=== PATIENT | female | born 1975 | race Caucasian/White ===

== ENCOUNTER 2018-08-03 11:43 | Outpatient (CLI) | payer BC ==
[~2018-08-03] VITALS: Ht 162.6 cm; Wt 73.9 kg
[2018-08-03 12:04] VITALS: Ht 162.6 cm; Wt 73.9 kg
[2018-08-03 12:05] VITALS: BP 135/82; PULSE 58
[2018-08-03] MEDS ORDERED: INSU100C SQ (12:06)
[2018-08-03] MEDS ORDERED: PNV11TAB PO (12:06)
--- NOTE | 2018-08-03 14:32 | TRIAGE ---
OB Triage Datetime Report Generated by CPN: 08/03/2018 14:32 Datetime: 08/03/2018 13:23 Stage of : OB Triage Datetime: 08/03/2018 12:57 Stage of : OB Triage Datetime: 08/03/2018 12:00 Stage of : OB Triage Assessment Type: Triage EGA: 35.1 Maternal Assessment Level of Consciousness: Fully Conscious DTR's/Clonus: DTRs 2+; No Clonus Headache: Denies Blurred Vision: No Respiratory Effort: Unlabored; Regular Rhythm; Equal Expansion Breath Sounds, Left: Clear and Equal Breath Sounds, Right: Clear and Equal Nausea/Vomiting: Denies RUQ Epigastric Pain: Denies Facial Edema: None Temperature Route: Axillary Fall Risk Assessment History of Falling: (0) No Secondary Diagnosis: (0) No Ambulatory Aid: (0) Bedrest/Nurse Assist IV Therapy: (0) No Gait: (0) Normal/Bedrest/Immobile Mental Status: (0) Oriented to Own Ability Fall Score: 0 Fall Risk Score Definition: No Risk: No action required Labor Evaluation Frequency: 0 Monitor Mode: External Pattern: Normal: <= 5 Contractions in 10 Minutes Resting Tone [place]: Relaxed Heart Rate FHR Baseline Rate: 135 Monitor Mode: External US Variability: Moderate 6-25 bpm Accelerations: 10X10 Decelerations: None Category: Category I Pain Assessment Pain Scale: 10 (Annotations: MIDDLE UPPER BACK PAIN OVER 3 DAYS) Pain Presence: Constant Pain Type: Ache Pain Location: Back Pain Goal: 3 Pain Relief Measures: Comfort Measures Datetime: 08/03/2018 11:59 Time of Arrival: 08/03/2018 11:30 Arrived By: Ambulatory Arrived From: Office Chief Complaint: REFERRED FROM DR CLINIC FOR GDM, BPP, EFW, NST, DENIES LEAKING, BLEEDING, OR UC'S Movement: Present Contractions: Denies/Absent Rupture of Membranes: Denies Vaginal Bleeding: None Vaginal Discharge: Denies Recent Sexual Intercouse: Denies Abdominal Trauma: Not Applicable Patient Complaints: None Time Provider Notified: 08/03/2018 12:57 Provider Notified: ye Initial Plan: MONITOR, U/S
--- NOTE | 2018-08-03 16:36 | PN ---
Triage Information Date/Time 08/03/1806/23/1631 Reason for visit: NST and BPP for GDM Weeks of Gestation 35w /Para A1 Diabetes: gestational Diabetes management: insulin controlled Hypertention: none Objective Vital Signs Date Temp Pulse Resp B/P (MAP) Pulse Ox O2 O2 Flow FiO2 Time Delivery Rate 08/03/18 58 135/82 12:05 (99) Heart Rate: 140's Heart Rate Comments CAT I tracing Results/Medications Imaging Results BPP 01/10 JENI 20.7 EFW 2987gm Disposition: Discharge Assessment/Plan A IUP 35w A2DM P RTH in 3days for antepartum test QUETA TRINIDAD MD Aug 03, 2018 16:36
== END 2018-08-03 13:30 | disposition home or self-care (01) ==
LOC: OBT 11:43 → L-D 11:45 → OBT 13:30
PROVIDERS: ATTEND Obstetrics & Gynecology
DX: O09.523 Supervision of elderly multigravida, third trimester (principal); O24.414 Gestational diabetes mellitus in pregnancy, insulin controlled; Z3A.35 35 weeks gestation of pregnancy
CPT/HCPCS: 76815; 76818; Z7500; G0463

== ENCOUNTER 2018-08-20 09:34 | Outpatient (CLI) | payer BC ==
[~2018-08-20] VITALS: Ht 162.6 cm; Wt 72.0 kg
[~2018-08-20 09:34] MED LIST: INSU100C SQ; PNV11TAB PO
[2018-08-20 09:54] VITALS: BP 139/80; PULSE 68; RESP 19
[2018-08-20 09:55] VITALS: Ht 162.6 cm; Wt 72.0 kg
--- NOTE | 2018-08-20 11:40 | PN ---
Triage Information Date/Time Reason for visit: PIH panel and BPP Weeks of Gestation 37+ /Para 4/2 Diabetes: none Hypertention: none Objective Vital Signs Date Temp Pulse Resp B/P (MAP) Pulse Ox O2 O2 Flow FiO2 Time Delivery Rate 08/20/18 98.4 68 19 139/80 Room Air 09:54 (99) Contractions: None Results/Medications Result Diagram: 08/20/18 1034 08/20/18 1034 Results 24 hrs Laboratory Tests Test 08/20/18 10:18 08/20/18 10:34 Urine Color YELLOW Urine Clarity CLEAR Urine pH 5.0 Urine Specific [place] 1.025 Urine Ketones NEGATIVE Urine Nitrite NEGATIVE Urine Bilirubin NEGATIVE Urine Urobilinogen NEGATIVE Urine Leukocyte Esterase NEGATIVE Urine Hemoglobin NEGATIVE Urine Glucose 3+ H Urine Total Protein NEGATIVE White Blood Count 7.7 Red Blood Count 3.73 L Hemoglobin 11.2 L Hematocrit 32.8 L Mean Corpuscular Volume 87.9 Mean Corpuscular Hemoglobin 30.0 Mean Corpuscular Hemoglobin Concent 34.1 Red Cell Distribution Width 13.2 Platelet Count 144 Mean Platelet Volume 11.8 H Immature Granulocytes % 0.800 H Neutrophils % 74.8 Lymphocytes % 14.1 L Monocytes % 8.2 Eosinophils % 1.7 Basophils % 0.4 Nucleated Red Blood Cells % 0.0 Immature Granulocytes # 0.060 H Neutrophils # 5.7 Lymphocytes # 1.1 Monocytes # 0.6 Eosinophils # 0.1 Basophils # 0.0 Nucleated Red Blood Cells # 0.0 Prothrombin Time 12.2 Prothrombin Time Ratio 1.0 INR International Normalized Ratio 0.89 Activated Partial Thromboplast Time 27.2 Fibrinogen 383.0 Sodium Level 134 L Potassium Level 4.1 Chloride Level 107 Carbon Dioxide Level 21 Anion Gap 6 Blood Urea Nitrogen 12 Creatinine 0.43 L Est Glomerular Filtrat Rate mL/min > 60 Glucose Level 107 Uric Acid 3.6 Calcium Level 8.9 Total Bilirubin 0.2 Direct Bilirubin 0.00 Indirect Bilirubin 0.2 Aspartate Amino Transf (AST/SGOT) 24 Alanine Aminotransferase (ALT/SGPT) 33 Alkaline Phosphatase 140 H Total Protein 6.0 L Albumin 3.0 L Globulin 3.00 Albumin/Globulin Ratio 1.00 Disposition: Discharge Assessment/Plan Labs Reviewed BPs reviewed BPP 03/14 No Headache No blurry vision no epigastric pain --->She will collect 24 hr urine for Protein and will return tomorrow --->Questions answered --->precautions discussed --->Follow up with provider BRYAN MILIAN M.D. Aug 20, 2018 11:39
== END 2018-08-20 11:48 | disposition home or self-care (01) ==
LOC: OBT 09:34 → L-D 09:35 → OBT 11:48
PROVIDERS: ATTEND Obstetrics & Gynecology
DX: O13.3 Gestational [pregnancy-induced] hypertension without significant proteinuria, third trimester (principal); O09.523 Supervision of elderly multigravida, third trimester; Z3A.37 37 weeks gestation of pregnancy
CPT/HCPCS: 76818; 80053; 81003; 84560; 85025; 85384; 85610; 85730; Z7500; G0463

== ENCOUNTER → 2018-08-21 | Outpatient (CLI) | payer BC ==
--- NOTE | 2018-08-23 21:34 | PREOPHP ---
DATE OF ADMISSION: 08/21/2018 HISTORY OF PRESENT ILLNESS: This is a 43-year-old female, 4, para 2, abortions 1 with an EDC of 09/06/2018. The patient was transferred to [place] for high-risk at 37 weeks of her pregnan cy with a history of diabetes on insulin, labetalol for hypertension with a previous history of a rep eat previous section. The patient had records from a different clinic and she had a previou s vaginal delivery and UAC at 28 weeks and she had a section in [place] for a baby in 2011 for a macrosomic child of 8 pound 14 ounces. She is in need for a repeat section in the inic. She was going to refer her to me only at this time. The patient also requesting for a tubal l igation. The first visit with me was 08/16/2018 at which time she was sent in for NST, BPP, PIH labs and 24-hour urine collection for protein, which was elevated to 560, everything else was normal. Th e patient is pass 38 weeks, she is advised for a repeat section to avoid impending PIH. Her legs had been extremely swollen to 4+ up to her knee with reflexes that are 2 to 3+. She is not in labor. Her blood sugars had been partially controlled. Her blood pressure had been in the 140s and 80s, but she states she has been swelling very fast. During this last weeks from last time I saw her , 2 days' time, she had gained 6 pounds only in ____ for hypertension and for impending PIH and diabe jose partially controlled. She is advised for a repeat section and tubal ligation. The britany ent is on labetalol 100 mg b.i.d. She has polyhydramnios and she is diabetic on insulin, not complia nt. PAST MEDICAL HISTORY: section and diabetes. ALLERGIES: SULFA. FAMILY HISTORY: Noncontributory. Her mother had PIH and section. PHYSICAL EXAMINATION: VITAL SIGNS: She is at this time, 171 pounds. She is 5 feet 4 inches. Her normal weight she states before was 130 and her blood pressure is 140/80 today. HEAD AND NECK: Normal. CHEST: Clear. HEART: Normal sinus rhythm. LUNGS: Clear. ABDOMEN: Soft, nontender, no masses. heart tones are present. EXTREMITIES: Normal. Her hands are swelling and she has been with immobilization due to carpal tunn el on both of her hands. Her legs are very swelling up to her knee with reflexes that are 2 to 3+. She denies any headaches, dizziness, double vision, epigastric pain; and she is undergoing a repeat c esarean section and tubal ligation for multiparity. FINAL DIAGNOSES: A 38-1/2-week ; chronic hypertension with superimposed preeclampsia; diabe jose, partially controlled; worsening hypertension; and previous section. PLAN: She is undergoing a repeat section and tubal ligation for multiparity, as she has bee n advised of the possible risks and possible complication of the procedure with her alternatives and options. Written information was provided. She had no more questions and agreed to go ahead with th e procedure with full understanding and no more questions. Dictated By: ARMIDA SANCHEZ/BENEDICT Conf#: [id number] DID#: [id number]
== END | disposition home or self-care (01) ==
LOC: OBT 13:56
PROVIDERS: ATTEND Obstetrics & Gynecology
DX: O13.3 Gestational [pregnancy-induced] hypertension without significant proteinuria, third trimester (principal); O24.419 Gestational diabetes mellitus in pregnancy, unspecified control; O34.219 Maternal care for unspecified type scar from previous cesarean delivery; O09.523 Supervision of elderly multigravida, third trimester; Z3A.37 37 weeks gestation of pregnancy; Z3A.01 Less than 8 weeks gestation of pregnancy; Z88.2 Allergy status to sulfonamides
CPT/HCPCS: 82565; 82575; 84156

== ENCOUNTER 2018-08-27 07:07 | Inpatient (IN) | payer BC ==
--- NOTE | 2018-08-23 21:34 | PREOPHP ---
DATE OF ADMISSION: 08/21/2018 HISTORY OF PRESENT ILLNESS: This is a 43-year-old female, 4, para 2, abortions 1 with an EDC of 09/06/2018. The [place] was [place] high-[place] at 37 weeks of her pregnan cy with a history of diabetes on insulin, labetalol for hypertension with a previous history of a rep eat previous section. The patient had records from a different clinic and she had a previou s vaginal delivery and UAC at 28 weeks and she had a section in [place] for a baby in 2011 for a macrosomic child of 8 pound 14 ounces. She is in need for a repeat section in the inic. She was going to refer her to me only at this time. The patient also requesting for a tubal l igation. The first visit with me was 08/16/2018 at which time she was sent in for NST, BPP, PIH labs and 24-hour urine collection for protein, which was elevated to 560, everything else was normal. Th e patient is pass 38 weeks, she is advised for a repeat section to avoid impending PIH. Her legs had been extremely swollen to 4+ up to her knee with reflexes that are 2 to 3+. She is not in labor. Her blood sugars had been partially controlled. Her blood pressure had been in the 140s and 80s, but she states she has been swelling very fast. During this last weeks from last time I saw her , 2 days' time, she had gained 6 pounds only in ____ for hypertension and for impending PIH and diabe jose partially controlled. She is advised for a repeat section and tubal ligation. The britany ent is on labetalol 100 mg b.i.d. She has polyhydramnios and she is diabetic on insulin, not complia nt. PAST MEDICAL HISTORY: section and diabetes. ALLERGIES: SULFA. FAMILY HISTORY: Noncontributory. Her mother had PIH and section. PHYSICAL EXAMINATION: VITAL SIGNS: She is at this time, 171 pounds. She is 5 feet 4 inches. Her normal weight she states before was 130 and her blood pressure is 140/80 today. HEAD AND NECK: Normal. CHEST: Clear. HEART: Normal sinus rhythm. LUNGS: Clear. ABDOMEN: Soft, nontender, no masses. heart tones are present. EXTREMITIES: Normal. Her hands are swelling and she has been with immobilization due to carpal tunn el on both of her hands. Her legs are very swelling up to her knee with reflexes that are 2 to 3+. She denies any headaches, dizziness, double vision, epigastric pain; and she is undergoing a repeat c esarean section and tubal ligation for multiparity. FINAL DIAGNOSES: A 38-1/2-week ; chronic hypertension with superimposed preeclampsia; diabe jose, partially controlled; worsening hypertension; and previous section. PLAN: She is undergoing a repeat section and tubal ligation for multiparity, as she has bee n advised of the possible risks and possible complication of the procedure with her alternatives and options. Written information was provided. She had no more questions and agreed to go ahead with th e procedure with full understanding and no more questions. Dictated By: ARMIDA SANCHEZ/BENEDICT Conf#: [id number] DID#: [id number]
[~2018-08-27] VITALS: Ht 162.6 cm; Wt 76.3 kg
[2018-08-27 07:31] VITALS: Ht 162.6 cm; Wt 76.3 kg
[2018-08-27] MEDS ORDERED: LACTATED RINGER'S 1,000 ML IV SCH ×2 (07:34→09:49)
[2018-08-27 07:59] VITALS: BP 114/76; PULSE 99; RESP 20
[2018-08-27] MEDS ORDERED: CEFAZOLIN 2 GM/50 ML (PMX) 50 ML IVPB SCH (08:00)
[2018-08-27] MEDS ORDERED: CARBOPROST 250 MCG INJ IM PRN ×2 (08:00→10:00)
[2018-08-27] MEDS ORDERED: MISOPROSTOL 200 MCG TAB PR PRN ×2 (08:00→10:00)
[2018-08-27] MEDS ORDERED: METHYLERGONOVINE 0.2 MG INJ IM PRN ×2 (08:00→10:00)
[2018-08-27] MEDS ORDERED: OXYTOCIN 30 UNITS/LR 500 ML IV SCH ×2 (08:00→09:49)
[2018-08-27] MEDS ORDERED: OXYTOCIN 30 UNITS/LR 500 ML IV PRN ×2 (08:00→10:00)
[2018-08-27] MEDS ORDERED: LABE100T7 PO (08:05)
[2018-08-27] MEDS ORDERED: NOVO7030 SC (08:06)
[2018-08-27] MEDS ORDERED: ONDANSETRON 4 MG INJ IV STA (08:39)
--- NOTE | 2018-08-27 08:46 | PREAC ---
Date/Time of Note Date/Time of Note DATE: 08/27/18 TIME: 08:45 Anesthesia Eval and Record Evaluation Time Pre-Procedure Interview DATE: 08/27/18 TIME: 08:45 Age 43 Sex female NPO: 8 hrs Preoperative diagnosis term , prev Csection Planned procedure repeat Csection Past Medical History Past Medical History: Includes Cardio: HTN Endo: Diabetes Surgery & Anesthesia Issues No known issue Meds Anticoagulation: No Beta Mercy within 24 hr: No Reason Beta Mercy not given: Pt. not on B-Mercy Reported Medications Insulin Isophan/Regular (Humulin 70/30) 100 Units/Ml Susp, 12 UNITS SC HS, EA 08/27/18 Labetalol Hcl* (Labetalol Hcl*) 100 Mg Tablet, 100 MG PO BID, TAB 08/27/18 [id number] ( ) 1 Each Tablet, 1 TAB PO DAILY, TAB 08/03/18 Current Medications Lactated Ringer's 1,000 ml @ 125 mls/hr Q8H IV Last administered on 08/27/18at 08:02; Admin Dose 125 MLS/HR; Start 08/27/18 at 07:34 Cefazolin Sodium/ Dextrose 50 ml @ 100 mls/hr ONCE IVPB ; Start 08/27/18 at 08:00 Oxytocin/Lactated Ringer's 500 ml @ 125 mls/hr POST IV ; Start 08/27/18 at 08:00 Oxytocin/Lactated Ringer's 500 ml @ 0 mls/hr ONCE PRN IV .VAGINAL BLEEDING; Start 08/27/18 at 08:00 Methylergonovine Maleate (Methergine) 0.2 mg ONCE PRN IM .VAGINAL BLEEDING; Start 08/27/18 at 08:00 Carboprost Tromethamine (Hemabate) 250 mcg ONCE PRN IM .VAGINAL BLEEDING; Start 08/27/18 at 08:00 Misoprostol (Cytotec) 1,000 mcg ONCE PRN MT .VAGINAL BLEEDING; Start 08/27/18 at 08:00 Famotidine (Pepcid Iv) 20 mg ONCE ONCE IV ; Start 08/27/18 at 09:00; Stop 08/27/18 at 09:01 Metoclopramide HCl (Reglan) 10 mg ONCE ONCE IV ; Start 08/27/18 at 09:00; Stop 08/27/18 at 09:01 Meds reviewed: Yes Allergies Coded Allergies: Sulfa (Sulfonamide Antibiotics) (Verified Allergy, Unknown, 08/03/18) Allergies Reviewed: Yes Labs/Studies Labs Reviewed: Reviewed by anesthesiologist Result Diagram: 08/27/18 0740 08/27/18 0740 Laboratory Tests 08/27/18 07:40 test: Positive Pre-procedure Exam Last vitals Vital Signs Date Temp Pulse Resp B/P (MAP) Pulse Ox O2 O2 Flow FiO2 Time Delivery Rate 08/27/18 97.5 99 20 114/76 Room Air 07:59 (89) Airway: Adequate mouth opening, Adequate thyromental dist Mallampati: Mallampati III Teeth: Normal Lung: Normal Heart: Normal ASA Physical Status ASA physical status: 3 Emergency: None Planned Anesthetic Neuraxial: Spinal Planned Pain Management Sub-arachniod narcotics, Parenteral pain med, Other neuraxial med Pre-operative Attestations Prior to commencing anesthesia and surgery, the patient was re-evaluated, there was verification of: *The patient's identity *The results of appropriate recent lab work and preoperative vital signs *The above evaluation not changing prior to induction *Anesthetic plan, risk benefits, alternative and complications discussed with patient/family; questions answered; patient/family understands, accepts and wishes to proceed. PALLVAI CARDENAS MD Aug 27, 2018 08:46
[2018-08-27] MEDS ORDERED: hydrALAzine 20 MG INJ IV PRN (09:00)
[2018-08-27] MEDS ORDERED: FENTAnyl 50 MCG/ML VIAL IV PRN ×2 (09:00)
[2018-08-27] MEDS ORDERED: ONDANSETRON 4 MG INJ IV PRN ×2 (09:00)
[2018-08-27] MEDS ORDERED: NALOXONE (0.4 MG/ML) INJ IV PRN (09:00)
[2018-08-27] MEDS ORDERED: KETOROLAC 30 MG INJ IV PRN ×2 (09:00)
[2018-08-27] MEDS ORDERED: LEVALBUTEROL (NEB) 1.25 MG/0.5 ML AMP HHN PRN (09:00)
[2018-08-27] MEDS ORDERED: LABETALOL HCL 20MG INJ IV PRN (09:00)
[2018-08-27] MEDS ORDERED: METOCLOPRAMIDE 10 MG INJ IV ONE (09:00)
[2018-08-27] MEDS ORDERED: FAMOTIDINE 20 MG INJ IV ONE (09:00)
[2018-08-27] MEDS ORDERED: ZOLPIDEM 5 MG TAB PO PRN (09:00)
[2018-08-27] MEDS ORDERED: HYDROmorphONE 0.5 MG/0.5 ML SYG IV PRN ×2 (09:00)
[2018-08-27] MEDS ORDERED: HYDROmorphONE 1 MG/5 ML IV SYRINGE IV PRN ×3 (09:00)
[2018-08-27] MEDS ORDERED: DIPHENHYDRAMINE 50 MG INJ IV PRN (09:00)
[2018-08-27] MEDS ORDERED: OXYTOCIN 10 UNIT INJ ONE (09:22)
[2018-08-27] MEDS ORDERED: EPINEPHrine 1 MG INJ ONE (09:22)
[2018-08-27] MEDS ORDERED: morphine SULFATE/PF (10 MG/10 ML) INJ ONE (09:22)
[2018-08-27] MEDS ORDERED: OXYTOCIN 30 UNITS/LR 500 ML IV ONE (09:22)
[2018-08-27] MEDS ORDERED: NA PHOSPHATE/BIPHOS 133 ML ENEMA PR PRN (10:00)
[2018-08-27] MEDS ORDERED: METHYLERGONOVINE 0.2 MG TAB PO PRN (10:00)
[2018-08-27] MEDS ORDERED: HYDROCODONE/APAP (5/325) TAB PO PRN (10:00)
[2018-08-27] MEDS ORDERED: LANOLIN HPA 1 PKT TOP PRN (10:00)
--- NOTE | 2018-08-27 10:05 | SIPON ---
Date/Time of Note Date/Time of Note DATE: 08/27/18 TIME: 10:02 Operative Report Preoperative Diagnosis 38.4 weeks Diabetes uncontrolled Hypertension Impending preeclampsia Previous Multiparity Postoperative Diagnosis Same Operation/Procedure Performed Repeat low segment transverse section Bilateral salpingectomy Surgeon see signature line plumber assistant JUSTO TRINIDAD Anesthesia: spinal Estimated blood loss: other Transfusion Required none Specimen Placenta Grafts/Implants none Complications none ARMIDA VIVEROS MD Aug 27, 2018 10:05
[2018-08-27] MEDS ORDERED: GLUCOSE GEL 15 GRAM TUBE PO PRN ×2 (12:00)
[2018-08-27] MEDS ORDERED: DEXTROSE 50% 50 ML SYRINGE IV PRN ×2 (12:00)
[2018-08-27] MEDS ORDERED: GLUCOSE GEL 15 GRAM TUBE BUCCAL PRN (12:00)
[2018-08-27] MEDS ORDERED: GLUCAGON 1 MG INJ IM PRN (12:00)
--- NOTE | 2018-08-27 12:54 | PAC ---
Date/Time of Note Date/Time of Note DATE: 08/27/18 TIME: 12:54 Post-Anesthesia Notes Post-Anesthesia Note Last documented vital signs Vital Signs Date Temp Pulse Resp B/P (MAP) Pulse Ox O2 O2 Flow FiO2 Time Delivery Rate 08/27/18 97.5 99 20 114/76 Room Air 07:59 (89) Activity: WNL Respiratory function: WNL Cardiovascular function: WNL Mental status: Baseline Pain reasonably controlled: Yes Hydration appropriate: Yes Nausea/Vomiting absent: Yes PALLAVI CARDENAS MD Aug 27, 2018 12:54
[2018-08-27] MEDS: ACCU-CHEK XX SCH ×2 (13:30→20:05)
[2018-08-27] MEDS: INSULIN ASPART [NOVOLOG] 3 ML PEN SC SCH ×3 (13:30→21:00)
--- NOTE | 2018-08-27 13:39 | OPR ---
DATE OF OPERATION: PREOPERATIVE DIAGNOSES: 1. A 38 and 4/7 weeks' with chronic hypertension with superimposed preeclampsia. 2. Uncontrolled diabetes. 3. Chronic hypertension, worsening. 4. Previous section. 5. The patient is unreliable. POSTOPERATIVE DIAGNOSES: 1. Macrosomic child baby boy, Apgars 9, 9 pounds and 7 ounces. 2. Uncontrolled diabetes. 3. Chronic hypertension with superimposed preeclampsia. 4. Previous section. PROCEDURES: Repeat low segment transverse section and bilateral fimbriectomy. SURGEON: Armida Lane MD AML ANALYST: Bethany Flor MD ANESTHESIOLOGIST: Dr. Carrillo. ANESTHESIA: Spinal. PROCEDURE IN DETAILS: The patient was given a spinal anesthesia, placed in the supine position. The abdomen was prepped and draped and a Whitt catheter was placed in the bladder. An elliptical incisi on was made along the previous old scar and the abdomen was opened without difficulties. The abdomin al cavity was reached. The lower uterine segment was identified. The bladder flap was made. The ut erus was opened in the midline with a scalpel. The incision was increased laterally on either side f or about 3 inches. The baby's head was delivered and the body was removed. The cord was clamped and cut. The baby's nostril and mouth had been suctioned. The cord was clamped and cut. The baby was handed over to the dispatcher motor vehicle team. The cord blood was obtained. The placenta was removed. The uterus was cleaned out. The cervix was opened with my finger and I changed gloves and I continued wi th the surgery by cleaning up the uterus. The uterus was bulky, hypertrophic, no filling of fibroid, but very hypertrophic. Both tubes and ovaries were normal. The uterus was closed in 2 layers using 0 PDS looped suture, inverting the first line of suture and hemostasis was good. Interceed was plac ed on the area of the incision. The right and left fimbria was removed after clamp was passed throug h and hemostasis was done with 2-0 Vicryl suture and hemostasis was perfectly fine. The sponge count s, instrument counts were correct. Abdominal cavity was cleaned out and the peritoneum was closed wi th a 2-0 Vicryl suture. The fascia was closed with 0 PDS looped suture, 2-0 Vicryl for the subcutane ous tissue, 3-0 Monocryl subcuticular to the skin. The patient tolerated the procedure well and left the OR awake and stable. Sponge counts and instruments counts were correct. Intravenous antibiotic s were given for prophylaxis. Blood loss was about 600 mL. The urine was clear at the end of the pr ocedure. Dictated By: ARMIDA SANCHEZ/BENEDICT Conf#: [id number] DID#: [id number]
[2018-08-27] MEDS: IBUPROFEN 800 MG TAB PO SCH ×2 (14:00→22:00)
[2018-08-27 14:50] VITALS: BP 144/90; PULSE 87; RESP 17
[2018-08-27 15:15] VITALS: BP 141/81; PULSE 71; RESP 17
[2018-08-27 16:00] VITALS: BP 135/84; PULSE 73; RESP 16
[2018-08-27] MEDS: DIPHENHYDRAMINE 50 MG INJ IV PRN ×2 (16:30→23:11)
[2018-08-27] MEDS: CEFAZOLIN 2 GM/50 ML (PMX) 50 ML IVPB SCH (17:28)
[2018-08-27 19:30] VITALS: BP 122/79; PULSE 76; RESP 19
[2018-08-27] MEDS: LABETALOL 100 MG TAB PO SCH (21:00)
[2018-08-27] MEDS: SENNA/DOCUSATE NA (8.6MG/50MG) TAB PO SCH (21:00)
[2018-08-27 23:30] VITALS: BP 121/71; PULSE 88; RESP 18
[2018-08-28] MEDS: INSULIN ASPART [NOVOLOG] 3 ML PEN SC SCH ×6 (01:00→21:00)
[2018-08-28] MEDS: CEFAZOLIN 2 GM/50 ML (PMX) 50 ML IVPB SCH ×2 (02:37→10:29)
[2018-08-28 03:30] VITALS: BP 122/69; PULSE 79; RESP 19
[2018-08-28] MEDS: IBUPROFEN 800 MG TAB PO SCH ×3 (06:00→21:48)
[2018-08-28] MEDS: DIPHENHYDRAMINE 50 MG INJ IV PRN (06:13)
[2018-08-28] MEDS: LABETALOL 100 MG TAB PO SCH ×2 (08:29→21:00)
[2018-08-28 08:30] VITALS: BP 120/68; PULSE 67; RESP 18
[2018-08-28] MEDS: SENNA/DOCUSATE NA (8.6MG/50MG) TAB PO SCH ×2 (08:30→20:56)
[2018-08-28] MEDS: HYDROCODONE/APAP (5/325) TAB PO PRN ×3 (08:30→20:57)
[2018-08-28] MEDS ORDERED: INFLUENZA VIRUS VACCINE 0.5 ML (DISPENSING) IM* ONE (09:00)
--- NOTE | 2018-08-28 11:18 | HPN ---
Date/Time of Note Date/Time of Note DATE: 08/28/18 TIME: 11:18 Interval H&P Admission Note Pt. seen H&P reviewed: No system changes ARMIDA VIVEROS MD Aug 28, 2018 11:18
--- NOTE | 2018-08-28 11:20 | PN ---
Date/Time of Note Date/Time of Note DATE: 08/28/18 TIME: 11:19 Assessment/Plan Lines/Catheters IV Catheter Type (from Nrsg): Peripheral IV Subjective 24 Hr Interval Summary Day 1 post Afebrile Feels good Vitals are stable Blood sugar blood pressures are stable, encouraged ambulation. Swelling still present but no headaches dizziness epigastric pain Leg edema still 2-3+ normal reflexes Constitutional: no complaints Feeding: advancing diet Pain Control: mild Detailed Summary Eyes: no complaints ENT: no complaints Respiratory: no complaints Cardiovascular: no complaints Gastrointestinal: no complaints Genitourinary: no complaints Musculoskeletal: no complaints Skin: no complaints Neurologic: no complaints Endocrine: no complaints Lymphatic: no complaints Psychological: no complaints, nl mood/affect Immunologic: no complaints Exam/Review of Systems Vital Signs Vitals Vital Signs Date Temp Pulse Resp B/P (MAP) Pulse Ox O2 O2 Flow FiO2 Time Delivery Rate 08/28/18 97.7 67 18 120/68 98 Room Air 08:30 (85) Intake and Output 08/27/18 08/27/18 08/28/18 1515:00 23:00 07:00 IntakeIntake Total 1000 ml 600 ml 500 ml OutputOutput Total 25 ml 400 ml 800 ml BalanceBalance 975 ml 200 ml -300 ml Exam Constitutional: alert, oriented, well developed Psych: no complaints, nl mood/affect Head: normocephalic, atraumatic Eyes: nl conjunctiva, EOMI, nl lids, nl sclera ENMT: nl external ears & nose, nl lips & teeth, nl nasal mucosa & septum, mucosa pink and moist Neck: supple, non-tender Respiratory: clear to auscultation, normal air movement Cardiovascular: regular rate and rhythm, nl pulses Gastrointestinal: soft, nl liver, spleen, non-tender Musculoskeletal: nl extremities to inspection, nl gait and stance Extremities: normal pulses Neurological: HYDROGRAPHY TEACHER II-XII intact, nl mental status, nl speech, nl strength Skin: nl turgor, rash or lesions Lymph: nl lymph nodes Results Result Diagram: 08/28/1813 08/28/1813 ARMIDA VIVEROS MD Aug 28, 2018 11:20
[2018-08-28] MEDS ORDERED: BISACODYL (EC) 5 MG TAB PO ONE (12:00)
[2018-08-28 12:15] VITALS: BP 133/56; PULSE 66; RESP 18
[2018-08-28 19:40] VITALS: BP 116/70; PULSE 69; RESP 19
[2018-08-29] MEDS: INSULIN ASPART [NOVOLOG] 3 ML PEN SC SCH ×6 (01:00→21:00)
[2018-08-29] MEDS: OXYCODONE/ACETAMINOPHEN (5/325) TAB PO PRN ×3 (01:50→20:38)
[2018-08-29 03:45] VITALS: BP 127/69; PULSE 77
[2018-08-29] MEDS: IBUPROFEN 800 MG TAB PO SCH ×3 (05:34→21:35)
[2018-08-29 08:18] VITALS: BP 143/79; PULSE 78; RESP 18
[2018-08-29] MEDS: SENNA/DOCUSATE NA (8.6MG/50MG) TAB PO SCH ×2 (08:38→20:38)
[2018-08-29] MEDS: LABETALOL 100 MG TAB PO SCH ×2 (08:43→20:38)
--- NOTE | 2018-08-29 10:45 | PN ---
Date/Time of Note Date/Time of Note DATE: 08/29/18 TIME: 10:42 Assessment/Plan Lines/Catheters IV Catheter Type (from Nrsg): Peripheral IV Subjective 24 Hr Interval Summary Day 2 post Afebrile Passing gases Incision healing good Uterus contracted Lochia normal Ambulating Still in severe pain We will advance diet Constitutional: improved Feeding: advancing diet Pain Control: moderate Detailed Summary Eyes: no complaints ENT: no complaints Respiratory: no complaints Cardiovascular: no complaints Gastrointestinal: no complaints Genitourinary: no complaints Musculoskeletal: no complaints Skin: no complaints Neurologic: no complaints Endocrine: no complaints Lymphatic: no complaints Psychological: no complaints, nl mood/affect Immunologic: no complaints Exam/Review of Systems Vital Signs Vitals Vital Signs Date Temp Pulse Resp B/P (MAP) Pulse Ox O2 O2 Flow FiO2 Time Delivery Rate 08/29/18 98.4 78 18 143/79 Room Air 08:18 (100) 08/28/18 98 12:15 Intake and Output 08/28/18 08/28/18 08/29/18 1515:00 23:00 07:00 IntakeIntake Total 425 ml OutputOutput Total 950 ml BalanceBalance 425 ml -950 ml Exam Constitutional: alert, oriented, well developed Psych: no complaints, nl mood/affect Head: normocephalic, atraumatic Eyes: nl conjunctiva, EOMI, nl lids, nl sclera ENMT: nl external ears & nose, nl lips & teeth, nl nasal mucosa & septum, mucosa pink and moist Neck: supple, non-tender Respiratory: clear to auscultation, normal air movement Cardiovascular: regular rate and rhythm, nl pulses Gastrointestinal: soft, nl liver, spleen, non-tender Musculoskeletal: nl extremities to inspection, nl gait and stance Extremities: normal pulses Neurological: TRAFFIC RATE ANALYST II-XII intact, nl mental status, nl speech, nl strength Skin: nl turgor, rash or lesions Lymph: nl lymph nodes Results Result Diagram: 08/28/1861208/28/18612 ARMIDA VIVEROS MD Aug 29, 2018 10:45
[2018-08-29] MEDS ORDERED: BISACODYL (EC) 5 MG TAB PO ONE (11:00)
[2018-08-29 12:00] VITALS: BP 142/82; PULSE 82; RESP 18
[2018-08-29 16:00] VITALS: BP 131/77; PULSE 72; RESP 16
[2018-08-29 19:50] VITALS: BP 134/89; PULSE 72; RESP 19
[2018-08-30] MEDS: INSULIN ASPART [NOVOLOG] 3 ML PEN SC SCH ×3 (01:00→09:00)
[2018-08-30 03:55] VITALS: BP 121/65; PULSE 75; RESP 19
[2018-08-30] MEDS: OXYCODONE/ACETAMINOPHEN (5/325) TAB PO PRN ×2 (03:55→08:54)
[2018-08-30] MEDS: IBUPROFEN 800 MG TAB PO SCH (05:47)
[2018-08-30 08:00] VITALS: BP 119/71; PULSE 68; RESP 18
[2018-08-30] MEDS: SENNA/DOCUSATE NA (8.6MG/50MG) TAB PO SCH (08:47)
[2018-08-30] MEDS ORDERED: MEASLES,MUMPS,RUBELLA VACCINE INJ SC* ONE (09:00)
[2018-08-30] MEDS: LABETALOL 100 MG TAB PO SCH (09:00)
[2018-08-30] MEDS ORDERED: DIPHTH/TET/ACEL PERTUSS (ADULT) 0.5 ML VIAL IM* ONE (09:00)
--- NOTE | 2018-08-30 11:51 | PD.PPDC ---
DEHYDRATOR Discharge Instruction Condition Kxdib2Rh Patient Condition: Tnmck2w Good Diet [id number] Diet: Wqlhl8k Resume Regular Diet Activity/Restrictions [id number] Activity: [id number] Normal Activity May Shower Zirxi6Pc Restrictions: Drooo0p No Exercising No Lifting No Driving No Sexual Activity Nothing in the Vagina No [place] No Tampons, douche Wound/Drain Care Instructions [id number] Wound/Drain Care Instructions: Puydb3y Wash with soap and water Keep clean and dry Follow-up Follow-up with Physician: 1, Week/Weeks Return to clinic for Hhgwf2Nd SPEED BELT SANDER Instructions: Smrxt2a Fever greater than 101 Chills Worsening abdominal pain Excessive Vaginal Bleeding More than 2 pads per hour Unable to tolerate diet [id number] OB Instructions: Bhrvi4m Breast Tenderness Depression Blurried Vision Headache Hgnll7Cj Surgical Instructions: Onxkg3e Incisional Drainage Incisional Redness ARMIDA VIVEROS MD Aug 30, 2018 11:51
--- NOTE | 2018-08-30 11:56 | DS ---
Date/Time of Note Date/Time of Note DATE: 08/30/18 TIME: 11:53 Discharge Summary Admission/Discharge Info Admit Date/Time Aug 27, 2018 at 07:07 Discharge Date/Time 08/30/2018 Discharge Diagnosis Term Previous section Hypertension with impending preeclampsia Diabetes Patient Condition: Good Procedures Repeat low segment transverse section Hx of Present Illness 43 years old female with previous section referred to me a week prior to admission in the hospital for a repeat section with term diabetes and hypertension with superimposed preeclampsia. The patient had a proteinuria that was over 580 and she had no headaches dizziness but her legs were swelling to 3+ and reflexes were 3+. A repeat section was scheduled Hospital Course Patient did very well after surgery She was up and about Her blood sugar were controlled with diet Her blood pressure was controlled with labetalol Her incision was healing good She had bowel movement and she is tolerating diet and voiding well She is sent home with instructions of what to do and not to do and to see me in the office in 1 week Home Meds Reported Medications Insulin Isophan/Regular (Humulin 70/30) 100 Units/Ml Susp, 12 UNITS SC HS, EA 08/27/18 Labetalol Hcl* (Labetalol Hcl*) 100 Mg Tablet, 100 MG PO BID, TAB 08/27/18 [id number] ( 19) 1 Each Tablet, 1 TAB PO DAILY, TAB 08/03/18 Primary Care Provider Care Physician No Primary Pending Labs Laboratory Tests Test 08/29/18 12:42 08/29/18 17:46 08/29/18 22:32 08/30/18 07:29 Bedside 102 131 127 Glucose mg/dL (70-220) mg/dL (70-220) mg/dL (70-220) White Blood 10.5 Count 10^3/ul (4.8-1 0.8) Red Blood 3.49 Count 10^6/ul (4.20- 5.40) Hemoglobin 10.4 g/dl (12.0-16. 0) Hematocrit 31.2 % (37.0-47.0) Mean 89.4 Corpuscular fl (82.0-101.0 Volume ) Mean 29.8 Corpuscular pg (29.0-33.0) Hemoglobin Mean 33.3 Corpuscular g/dl (32.0-37. Hemoglobin Conc 0) ent Red Cell 13.9 Distribution % (11.5-14.5) Width Platelet Count 254 10^3/UL (140-4 15) Mean Platelet 10.8 Volume fl (7.4-10.4) Immature 0.400 Granulocytes % % (0.001-0.429 ) Neutrophils % 82.8 % (39.0-77.0) Lymphocytes % 9.0 % (15.0-51.0) Monocytes % 6.4 % (0.0-11.0) Eosinophils % 1.2 % (0.0-7.0) Basophils % 0.2 % (0.0-2.0) Nucleated Red 0.0 Blood Cells % /100WBC (0.0-0 .0) Immature 0.040 Granulocytes # 10^3/ul (0.0-0 .031) Neutrophils # 8.7 10^3/ul (1.6-7 .5) Lymphocytes # 0.9 10^3/ul (0.8-2 .9) Monocytes # 0.7 10^3/ul (0.3-0 .9) Eosinophils # 0.1 10^3/ul (0.0-0 .5) Basophils # 0.0 10^3/ul (0.0-0 .1) Nucleated Red 0.0 Blood Cells # 10^3/ul (0.0-0 .0) Test 08/30/18 08:44 Bedside 85 Glucose mg/dL (70-220) ARMIDA VIVEROS MD Aug 30, 2018 11:56
--- NOTE | 2018-08-31 16:03 | DELSUM ---
Delivery Summary A-C Datetime Report Generated by CPN: 08/31/2018 16:03 DELIVERY PERSONNEL Bronzer: Carr, [place] MATERNAL INFORMATION Delivery Anesthesia: Spinal Medications in Delivery: see anesthesia Delivery QBL (ml): 600 Placenta Cultured: No Maternal Complications: Other Other Maternal Complications: high bp, type 2 DM LABOR SUMMARY EDC: 09/06/2018 00:00 No. Babies in Womb: 1 Attempted: No Labor Anesthesia: None LABOR INFORMATION Reason for Induction: Not Applicable Oxytocin: N/A Group B Beta Strep: Done, Result Unknown Antibiotics # of Doses: 1 Antibiotics Time of Last Dose: 08/27/2018 10:24 Steroids Given: None Reason Steroids Not Administered: Not Applicable MEMBRANES Membranes Rupture Method: Artificial Rupture of Membranes: 08/27/2018 10:48 Length of Rupture (hr): 0.02 Amniotic Fluid Color: Clear Amniotic Fluid Amount: Large Amniotic Fluid Odor: Normal STAGES OF LABOR Stage 3 hr: 0 Stage 3 min: 1 CSECTION DELIVERY Primary Indication: Repeat Elective CSection Urgency: Non Elective CSection Incidence: Repeat Labor: No Labor Elective: Nonelective CSection Incision: Lower Uterine Transverse Sterilization Procedure: Emilie BABY A INFORMATION Delivery Date/Time: 08/27/2018 10:49 Method of Delivery: Born in Route : No : N/A Forceps: N/A Vacuum Extraction: N/A Shoulder Dystocia : N/A SHOULDER DYSTOCIA BABY A Delivery Date/Time: 08/27/2018 10:49 PRESENTATION/POSITION BABY A Presentation: Cephalic Cephalic Presentation: Vertex Vertex Position: Right Occipital Posterior Breech Presentation: N/A PLACENTA INFORMATION BABY A Placenta Delivery Time : 08/27/2018 10:50 Placenta Method of Delivery: Manual Removal Placenta Status: Delivered SCORES BABY A Heart Rate 1 min: >100 bpm Resp Effort 1 min: Good Cry Reflex Irritability 1 min: Cough/Sneeze/Pulls Away Muscle Tone 1 min: Active Motion Color 1 min: Blue/Pale Resuscitation Effort 1 min: Tactile Stimulation SCORE 1 MIN: 8 Heart Rate 5 min: >100 bpm Resp Effort 5 min: Good Cry Reflex Irritability 5 min: Cough/Sneeze/Pulls Away Muscle Tone 5 min: Active Motion Color 5 min: Body [place], Extremit Blue SCORE 5 MIN: 9 INFANT INFORMATION BABY A Gestational Age at Delivery: 38.4 Gestational Status: Early Term- 37- 38.6 Weeks Outcome : Liveborn Condition : Stable Infant Sex: Male IDENTIFICATION/MEDS BABY A ID Band Number: [id number] ID Band Location: Right Leg; Left Arm Sensor Applied: Yes Sensor Number: [id number] Sensor Location : Cord Clamp WEIGHT/LENGTH BABY A Infant Birthweight (gm): 4275 Infant Weight (lb): 9 Infant Weight (oz): 7 Infant Length (in): 21.00 Length (cm): 53.34 CORD INFORMATION BABY A No. Cord Vessels: 3 Nuchal Cord : N/A Cord Blood Taken: Yes Suction: Mouth; Nose ASSESSMENT BABY A Complications: None Physical Findings at Delivery: Within Normal Limits Infant Respirations: Appears Normal Band And Cuff Cutter/ALS Called : No Care By: RT/OCTOBER RN Transferred To: Remains with Mother
== END 2018-08-30 16:03 | disposition home or self-care (01) | DRG 783 ==
LOC: L-D 07:07 → PP1 14:54
PROVIDERS: ADMIT Obstetrics & Gynecology; ATTEND Obstetrics & Gynecology
PROC: 0UB70ZZ Excision of Bilateral Fallopian Tubes, Open Approach (ICD-10-PCS; 2018-08-27)
PROC: 10D00Z1 Extraction of Products of Conception, Low, Open Approach (ICD-10-PCS; principal; 2018-08-27 09:00)
DX: O65.5 Obstructed labor due to abnormality of maternal pelvic organs (principal); O24.12 Pre-existing type 2 diabetes mellitus, in childbirth; O34.211 Maternal care for low transverse scar from previous cesarean delivery; E11.9 Type 2 diabetes mellitus without complications; O36.63X0 Maternal care for excessive fetal growth, third trimester, not applicable or unspecified; O14.94 Unspecified pre-eclampsia, complicating childbirth; Z3A.38 38 weeks gestation of pregnancy; Z37.0 Single live birth; Z79.4 Long term (current) use of insulin; Z30.2 Encounter for sterilization
CPT/HCPCS: 80053; 81001; 82962; 84560; 85025; 85362; 85384; 85610; 85730; 86592; 86850; 86870; 86885; 86900; 86901; 87340; 88302; 90686; J0171; J0690; J1200; J1815; J2274; J2405; J2590; J2765; J2790; J7120